=== PATIENT | female | born 1985 | race Caucasian/White ===

== ENCOUNTER → 2019-01-09 | Outpatient (CLI) | payer OTHER ==
--- NOTE | 2019-01-09 18:34 | RAD ---
EXAM DESCRIPTION: Fingers,Right x-ray right thumb three views CLINICAL HISTORY: 33 years Female, PAIN FIRST DIGIT COMPARISON: None. FINDINGS: Three x-ray views of the right thumb are obtained. No fracture. Mild degenerative spurring at the base of the proximal phalanx. No significant degenerative changes at the lateral carpus or first metacarpal phalangeal joint. No narrowing of the interphalangeal joint of the thumb. No foreign body. IMPRESSION: Negative. Electronically signed by: Abhijit Small MD 01/09/2019 6:30 PM [facility]
--- NOTE | 2019-01-09 18:35 | RAD ---
EXAM DESCRIPTION: Fingers,Right x-ray right thumb three views CLINICAL HISTORY: 33 years Female, PAIN FIRST DIGIT COMPARISON: None. FINDINGS: Three x-ray views of the right thumb are obtained. No fracture. Mild degenerative spurring at the base of the proximal phalanx. No significant degenerative changes at the lateral carpus or first metacarpal phalangeal joint. No narrowing of the interphalangeal joint of the thumb. No foreign body. IMPRESSION: Negative. Electronically signed by: Abhijit Small MD 01/09/2019 6:30 PM [facility]
== END ==
LOC: LAB.O 12:38
PROVIDERS: ATTEND Nurse Practitioner Family
DX: M79.609 Pain in unspecified limb (principal)